=== PATIENT | male | born 1990 | race Two or more races ===

== ENCOUNTER 2021-01-30 23:30 | Emergency (ER) | payer SELFPAY ==
[~2021-01-30] VITALS: Ht 175.3 cm; Wt 104.3 kg
[2021-01-30 23:48] VITALS: BP 136/94
== END 2021-01-31 05:52 | disposition home or self-care (01) ==
LOC: ER 23:30 → EEVIPCON 23:30 → ER 01-31 05:52
DX: F41.9 Anxiety disorder, unspecified (principal); F32.9 Major depressive disorder, single episode, unspecified